=== PATIENT | female | born 1955 | race Caucasian/White ===

== ENCOUNTER 2018-07-29 22:15 | Emergency (ER) | payer OTHER ==
[~2018-07-29] VITALS: Ht 157.5 cm; Wt 99.8 kg
[~2018-07-29 22:15] MED LIST: ACTOS 45 MG45 M1 PO; BENTYL 10 MG CA10 MG PO; DARVOCET-N 1001 EACH PO; DIASTAT2.5 MG PO; FIRST-PROGESTER25 MG VG; FLAGYL PO; GLUCOPHAGE500 MG PO; LEVAQUIN PO; LEVOXYL50 MCG PO; LIDODERM 5%1 PATCH TOP; LOTREL 10-40 M1 EACH PO; MESTINON60 MG PO; NEXIUM40 MG PO; PREMARIN0.625 MG PO; PROVERA10 MG PO; SIMVASTATIN40 MG PO; TRIAMTERENE-HC1 EAC1 PO
[2018-07-29] MEDS ORDERED: PRILOSEC 20 MG20 MG PO (22:27)
[2018-07-30 03:18] VITALS: BP 104/62
== END 2018-07-30 03:25 | disposition home or self-care (01) ==
LOC: ER 22:15
DX: T18.120A Food in esophagus causing compression of trachea, initial encounter (principal); K22.2 Esophageal obstruction; R11.10 Vomiting, unspecified; E11.9 Type 2 diabetes mellitus without complications; K21.9 Gastro-esophageal reflux disease without esophagitis; I10 Essential (primary) hypertension; E78.00 Pure hypercholesterolemia, unspecified; E03.9 Hypothyroidism, unspecified; Z88.8 Allergy status to other drugs, medicaments and biological substances; Z88.1 Allergy status to other antibiotic agents; X58.XXXA Exposure to other specified factors, initial encounter
CPT/HCPCS: 62110; 62900

== ENCOUNTER 2021-02-05 20:20 | Emergency (ER) | payer OTHER ==
[~2021-02-05] VITALS: Ht 157.5 cm; Wt 61.2 kg
[~2021-02-05 20:20] MED LIST changes: +PRILOSEC 20 MG20 MG PO
[2021-02-05 20:31] VITALS: BP 160/84
[2021-02-05] MEDS ORDERED: GLYBURIDE 5 MG T5 M1 PO (20:36)
[2021-02-05] MEDS ORDERED: TRADJENTA5 MG PO (20:36)
[2021-02-05] MEDS ORDERED: LANTUS SUBQ (20:37)
[2021-02-05] MEDS ORDERED: NOVOLOG100 UNIT/M SUBQ (20:37)
[2021-02-05] MEDS ORDERED: TRIAMTERENE/HCT1 CA1 PO (20:38)
[2021-02-05] MEDS ORDERED: LIPITOR40 MG PO (20:38)
== END 2021-02-05 22:12 | disposition home or self-care (01) ==
LOC: ER 20:20
DX: T18.128A Food in esophagus causing other injury, initial encounter (principal); E11.9 Type 2 diabetes mellitus without complications; K21.9 Gastro-esophageal reflux disease without esophagitis; E03.9 Hypothyroidism, unspecified; E78.00 Pure hypercholesterolemia, unspecified; Z79.4 Long term (current) use of insulin; Z88.1 Allergy status to other antibiotic agents; Z88.5 Allergy status to narcotic agent; Z79.899 Other long term (current) drug therapy; X58.XXXA Exposure to other specified factors, initial encounter; Y93.89 Activity, other specified; Y99.8 Other external cause status; Y92.511 Restaurant or cafe as the place of occurrence of the external cause; I10 Essential (primary) hypertension